=== PATIENT | female | born 1930 | race Caucasian/White ===

== ENCOUNTER 2017-05-04 10:16 | Outpatient (CLI) | payer MEDICARE, OTHER ==
--- NOTE | 2017-05-05 15:31 | DEXA Report ---
DEXA: 05/04/2017 CLINICAL INDICATION: Postmenopausal. TECHNIQUE: Dual energy x-ray absorptiometry (DXA) was performed on a [employer] system. Regions measured are the AP spine, femoral neck, and, if needed, forearm. COMPARISON: None. In accordance with the International Society for Clinical Densitometry (ISCD) guidelines, data from previous exams may be reanalyzed using current recommendations and techniques. This is done to allow a more accurate basis for comparison with the current study. FINDINGS Data for the lumbar spine is as follows: REGION BMD (g/cm/cm) T-SCORE Z-SCORE L1 0.929 -1.7 0.2 L2 0.982 -1.8 0.0 L3 1.343 1.2 3.1 L4 1.368 1.4 3.3 TOTAL 1.179 0.0 1.9 NOTE: All evaluable vertebrae are used for classification. Data for the hip is as follows: REGION BMD (g/cm/cm) T-SCORE Z-SCORE Neck 0.624 -3.0 -0.5 TOTAL 0.627 -3.0 -0.7 NOTE: The femoral neck or total proximal femur, whichever is lowest, is used for classification. IMPRESSION: THE WHO CLASSIFICATION BASED ON THE INTERNATIONAL REFERENCE STANDARD IS OSTEOPOROSIS. FRACTURE RISK IS HIGH. RECOMMENDATION: Patients with diagnosis of osteoporosis or osteopenia should have regular bone mineral density assessment. For those eligible for Medicare, routine testing is allowed once every 2 years. Testing frequency can be increased for patients who have rapidly progressing disease or for those who are receiving medical therapy to restore bone mass. COMMENT: World Health Organization (WHO) definitions for osteoporosis and osteopenia: NORMAL BMD: T-score at -1.0 or higher, fracture risk is low. OSTEOPENIA BMD: T-score between -1.0 and -2.5, fracture risk is increased. OSTEOPOROSIS BMD: T-score at -2.5 or lower, fracture risk high. National Osteoporosis Foundation recommends: 1. Obtain adequate dietary calcium (at least 1200 mg per day) and vitamin D (400 -800 international units per day). 2. Participate, as appropriate, in regular weightbearing and muscle- strengthening exercise. 3. Avoid tobacco use and reduce alcohol and caffeine intake. 4. For more detailed information see the website at www.NOF.org. MTDD
== END 2017-05-04 10:17 | disposition home or self-care (01) ==
LOC: DI 10:16
PROVIDERS: ATTEND Registered Nurse
DX: Z13.820 Encounter for screening for osteoporosis (principal); M81.0 Age-related osteoporosis without current pathological fracture; Z78.0 Asymptomatic menopausal state
CPT/HCPCS: 77080

== ENCOUNTER 2017-09-11 10:42 | Emergency (ER) | payer MEDICARE, OTHER ==
--- NOTE | 2017-09-11 11:07 | ED Physician Documentation ---
PD HPI BACK INJURY - Stated complaint Stated Complaint: GLF/BACK PX - History obtained from History obtained from: Patient - History of Present Illness Location: Lower (tailbone and pelvic area) Type of injury: Fall (slipped on ice and landed onto her buttocks, with pain in lower back/tailbone area.) Timing - onset: Last night Timing - duration: Days (1) Timing - details: Abrupt onset, Still present (hurting with walking around. Has walker at home.) Associated symptoms: No: Fever, Weakness, Numbness, Incontinent of urine Contributing factors: No: Work related Similar symptoms before: Has not had sx before Recently seen: Not recently seen Review of Systems Constitutional: denies: Fever, Chills Nose: denies: Rhinorrhea / runny nose, Congestion Throat: denies: Sore throat Respiratory: denies: Cough Skin: denies: Abrasion (s), Laceration (s) Neurologic: denies: Focal weakness, Numbness, Confused, Altered mental status, Headache, Head injury PD PAST MEDICAL HISTORY - Past Medical History Past Medical History: Yes Cardiovascular: Hypertension, High cholesterol Respiratory: Pneumonia Endocrine/Autoimmune: None GI: None : Retention, Nocturia HEENT: Macular degeneration, Chronic hearing loss Psych: None Musculoskeletal: Osteoarthritis, Chronic back pain Derm: Other - Past Surgical History Past Surgical History: Yes General: Appendectomy Ortho: Hip replacement /[employer]LYST: Mastectomy HEENT: Tonsil/Adenoidectomy - Present Medications Home Medications: Ambulatory Orders Medication Instructions Recorded Confirmed Chlorthalidone 25 mg PO DAILY 03/11/13 06/08/15 Losartan Potassium [Cozaar] 50 mg PO DAILY 03/11/13 06/08/15 Metoprolol Succinate 25 mg PO QPM 04/03/14 06/08/15 Aspirin 325 mg PO DAILY 09/11/17 Tramadol HCl 50 mg PO Q6H PRN #25 tablet 09/11/17 - Allergies Allergies/Adverse Reactions: Allergies Allergy/AdvReac Type Severity Reaction Status Date / Time No Known Drug Allergies Allergy Unverified 09/11/17 11:29 - Social History Does the pt smoke?: No Smoking Status: Never smoker Does the pt drink ETOH?: Yes Does the pt have substance abuse?: No - Immunizations Immunizations are current?: Yes PD ED PE NORMAL - Vitals Vital signs reviewed: Yes - General General: Alert and oriented X 3, No acute distress, Well developed/nourished - HEENT HEENT: Atraumatic - Neck Neck: Supple, no meningeal sign, No adenopathy - Cardiac Cardiac: RRR, No murmur - Respiratory Respiratory: Clear bilaterally - Abdomen Abdomen: Soft, Non tender - Back Back: Other (lumbar not tender. Having some tenderness sacral area and hurts with palpation of the pelvis. Hips good ROM and no pain with impaction. ) - Derm Derm: Normal color, Warm and dry Results - Vitals Vitals: Oxygen O2 Source Room air - Rads (name of study) pelvic CT Radiology: Prelim report reviewed (sacral avulsion fracture anteriorly S2-3 junction. ) PD MEDICAL DECISION MAKING - ED course Complexity details: considered differential, d/w patient, d/w family (spouse) Departure - Departure Disposition: 01 Home, Self Care Clinical Impression: Fall from slipping on ice Qualifiers: Encounter type: initial encounter Qualified Code(s): W00.9XXA - Unspecified fall due to ice and snow, initial encounter Sacral fracture, closed Qualifiers: Encounter type: initial encounter Zone of sacrum fracture: unspecified portion of sacrum Qualified Code(s): S32.10XA - Unspecified fracture of sacrum, initial encounter for closed fracture Condition: Stable Record reviewed to determine appropriate education?: Yes Instructions: ED Fx Pelvis Follow-Up: Heidi Gar ARNP [Primary Care Provider] - Prescriptions: Tramadol HCl 50 mg PO Q6H PRN #25 tablet PRN Reason: Pain Comments: Bearing and activity is okay but will hurt. Use ibuprofen 400 mg 3 times a day and add Tylenol 650 mg 4 times a day if needed. Add tramadol to that if needed for pain. Use a stool softener such as docusate daily. Drink lots of fluids. Follow-up with your primary care in about a week. Discharge Date/Time: 09/11/17 13:32
[2017-09-11] MEDS ORDERED: ACETAMINOPHEN 325 MG TABLET PO STA (11:27)
--- NOTE | 2017-09-11 12:50 | CT Report ---
EXAM: CT BONY PELVIS WITHOUT CONTRAST EXAM DATE: 09/11/2017 12:06 PM. CLINICAL HISTORY: Fell onto buttock 2 days ago; pain in sacral/coccyx. COMPARISON: Hip films from 07/31/2015. TECHNIQUE: Thin-section axial images were acquired of the pelvis without contrast. Post-processing: C oronal and sagittal reformats. Other: None. In accordance with CT protocol optimization, one or more of the following dose reduction techniques w ere utilized for this exam: automated exposure control, adjustment of mA and/or KV based on patient s ize, or use of iterative reconstructive technique. FINDINGS: Bones: There is a small fracture of the sacrum along the anterior aspect of the S2-S3 level. This is best seen on the sagittal plane on images 177 through 205. This can also be seen on the axial images of series 3, images 127 through 134. It appears that there is slight posterior displacement of the S2 level with respect to the S3 level. There are degenerative changes within the visualized lumbosacral spine, particularly at L5-S1. There is grade 1 anterolisthesis of L4 on L5 measuring 9 mm. Sacroiliac Joints: No widening, erosions, or sclerosis. Symphysis Pubis: Unremarkable. Right Hip: Total hip replacement. Hardware appears intact. Left Hip: The joint space is preserved. No calcified loose bodies. Musculature: Normal. No fatty atrophy. Pelvic Cavity: The visualized bowel, bladder, and reproductive organs are unremarkable on this noncon trast exam. Other: There is calcific atherosclerotic disease of the aorta and its branches. Coarse calcifications are noted within the right side of the pelvis, probably calcified lymph nodes. No lymphadenopathy. V isualized soft tissues within the pelvis are unremarkable. IMPRESSION: 1. Small fracture of the anterior aspect of the sacrum along the S2-S3 level. Slight posterior displa cement of the S2 level with respect to the S3 level as well. 2. Degenerative changes within the visualized lumbosacral spine. Grade 1 anterolisthesis of L4 and L5 . 3. Total hip replacement on the right. [facility] Referring Provider Line: [phone] SITE ID: [id number]
[2017-09-11] MEDS ORDERED: traMADol 50 MG TABLET PO STA (13:05)
[2017-09-11 13:18] VITALS: BP 159/73
== END 2017-09-11 13:32 | disposition home or self-care (01) ==
LOC: ED 10:42
DX: S32.10XA Unspecified fracture of sacrum, initial encounter for closed fracture (principal); W00.0XXA Fall on same level due to ice and snow, initial encounter; I10 Essential (primary) hypertension; E78.00 Pure hypercholesterolemia, unspecified; Z96.649 Presence of unspecified artificial hip joint; Z90.10 Acquired absence of unspecified breast and nipple
CPT/HCPCS: 72192; 99283; A9270

== ENCOUNTER 2017-09-13 06:34 | Outpatient (CLI) | payer MEDICARE, OTHER | END 2017-09-13 06:35 | disposition EMS.NT | LOC: EMS 06:34 | PROVIDERS: ATTEND Surgery | DX: M53.3 Sacrococcygeal disorders, not elsewhere classified (principal) ==

== ENCOUNTER 2017-09-13 08:03 | Emergency (ER) | payer MEDICARE, OTHER ==
[2017-09-13] MEDS ORDERED: HYDROcod/ACETAM 5/325 MG TABLET PO STA (09:40)
--- NOTE | 2017-09-13 09:40 | ED Physician Documentation ---
History of Present Illness - Stated complaint Stated Complaint: LOW BACK PX/2ND TO FALL - Chief complaint Chief Complaint: Back Pain - History obtained from History obtained from: Patient, Family (son) - Additonal information Additional information: 87-year-old female slipped on the ice on her walker fell onto her buttocks and has had a sacral fracture. She is having inadequate pain relief with the use of the tramadol. She has also developed some urinary incontinence that she has had previously with infection. Review of Systems Constitutional: denies: Fever Eyes: denies: Decreased vision Ears: denies: Ear pain Nose: denies: Congestion Throat: denies: Sore throat GI: denies: Vomiting : reports: Dysuria, Frequency, Incontinent Skin: denies: Rash Musculoskeletal: reports: Back pain. denies: Neck pain Neurologic: denies: Generalized weakness, Focal weakness PD PAST MEDICAL HISTORY - Past Medical History Past Medical History: Yes Cardiovascular: Hypertension, High cholesterol Respiratory: Pneumonia Endocrine/Autoimmune: None GI: None : Retention, Nocturia HEENT: Macular degeneration, Chronic hearing loss Psych: None Musculoskeletal: Osteoarthritis, Chronic back pain Derm: Other - Past Surgical History Past Surgical History: Yes General: Appendectomy Ortho: Hip replacement /[employer]: Mastectomy HEENT: Tonsil/Adenoidectomy - Present Medications Home Medications: Ambulatory Orders Medication Instructions Recorded Confirmed Chlorthalidone 25 mg PO DAILY 03/11/13 06/08/15 Losartan Potassium [Cozaar] 50 mg PO DAILY 03/11/13 06/08/15 Metoprolol Succinate 25 mg PO QPM 04/03/14 06/08/15 Aspirin 325 mg PO DAILY 09/11/17 HYDROcod/ACETAM 5/325 [Re[place]beck 5/325] 1 - 2 ea PO Q6H PRN #15 tablet 09/13/17 Sulfamethoxazole/Trimethoprim 1 each PO BID #14 tablet 09/13/17 [Sulfamethoxazole-Tmp Ds Tablet] - Allergies Allergies/Adverse Reactions: Allergies Allergy/AdvReac Type Severity Reaction Status Date / Time No Known Drug Allergies Allergy Unverified 09/11/17 11:29 - Social History Does the pt smoke?: No Smoking Status: Never smoker Does the pt drink ETOH?: Yes Does the pt have substance abuse?: No - Immunizations Immunizations are current?: Yes - POLST Patient has POLST: Yes PD ED PE NORMAL - Vitals Vital signs reviewed: Yes (tachy and hypertensive ) - General General: Alert and oriented X 3, No acute distress, Well developed/nourished - HEENT HEENT: Atraumatic, PERRL - Respiratory Respiratory: No respiratory distress - Back Back: No CVA TTP, Other (There is point tenderness to the lower back over the scarum ) - Derm Derm: Normal color, Warm and dry, No rash - Extremities Extremities: No deformity, No edema - Neuro Neuro: No motor deficit, No sensory deficit Eye Opening: Spontaneous Motor: Obeys Commands Verbal: Oriented GCS Score: 15 - Psych Psych: Normal mood, Normal affect Results - Vitals Vitals: Vital Signs - 24 hr 09/13/17 08:21 Temperature 37.0 C Heart Rate 101 H Respiratory 16 Rate Blood Pressure 185/102 H O2 Saturation 90 L Oxygen O2 Source Room air - Labs Labs: Laboratory Tests 09/13/17 09:40 Urine Color YELLOW Urine Clarity CLEAR Urine pH 6.5 Ur Specific Kiel 1.015 Urine Protein NEGATIVE Urine Glucose (UA) NEGATIVE Urine Ketones TRACE Urine Occult Blood NEGATIVE Urine Nitrite POSITIVE H Urine Bilirubin NEGATIVE Urine Urobilinogen 0.2 (NORMAL) Ur Leukocyte Esterase NEGATIVE Urine RBC 0-5 Urine WBC 6-10 H Ur Squamous Epith Cells MOD Squamous H Urine Bacteria Moderate H Ur Microscopic Review INDICATED Urine Culture Comments NOT INDICATED PD MEDICAL DECISION MAKING - ED course Complexity details: reviewed old records, reviewed results, re-evaluated patient , considered differential, d/w patient, d/w family ED course: 87-year-old female with a recent fall has inadequate pain relief with the use of tramadol she is administered Vicodin orally here in the emergency department with some improvement in her pain she also has an increase in her incontinence and has urinary tract infection on evaluation of her urine. We will place her on some Septra and increase fluids and prescribed the pain medication. Departure - Departure Disposition: 01 Home, Self Care Clinical Impression: UTI (lower urinary tract infection) Sacral fracture, closed Qualifiers: Encounter type: initial encounter Zone of sacrum fracture: unspecified portion of sacrum Qualified Code(s): S32.10XA - Unspecified fracture of sacrum, initial encounter for closed fracture Instructions: ED Fx Coccyx, ED UTI Cystitis Female Follow-Up: Heidi Gar, [employer] [Primary Care Provider] - Prescriptions: HYDROcod/ACETAM 5/325 [Re[place]beck 5/325] 1 - 2 ea PO Q6H PRN #15 tablet PRN Reason: Pain Sulfamethoxazole/Trimethoprim [Sulfamethoxazole-Tmp Ds Tablet] 1 each PO BID # 14 tablet
[2017-09-13 09:54] LABS: BILIRUBIN,URINE NEGATIVE (NEGATIVE); GLUCOSE, URINE (UA) NEGATIVE (NEGATIVE); KETONES,URINE (UA) TRACE mg/dL (NEGATIVE); LEUKOCYTE ESTERASE, URINE NEGATIVE (NEGATIVE); NITRITE,URINE POSITIVE (NEGATIVE); OCCULT BLOOD,URINE NEGATIVE (NEGATIVE); PH,URINE 6.5 PH (5.0-7.5); PROTEIN,URINE NEGATIVE (NEGATIVE); UROBILINOGEN,URINE 0.2 (NORMAL) E.U./dL (NORMAL)
[2017-09-13 09:55] LABS: CLARITY,URINE CLEAR (CLEAR)
[2017-09-13 10:03] LABS: BACTERIA,URINE Moderate /HPF (None Seen); RBC,URINE 0-5 /HPF (0-5); SQUAMOUS EPITHELIAL CELL,UR MOD Squamous (<= Few)
[2017-09-13 11:38] VITALS: BP 167/76
== END 2017-09-13 12:10 | disposition home or self-care (01) ==
LOC: ED 08:03
DX: N39.0 Urinary tract infection, site not specified (principal); S32.10XA Unspecified fracture of sacrum, initial encounter for closed fracture; W00.0XXA Fall on same level due to ice and snow, initial encounter; I10 Essential (primary) hypertension; E78.00 Pure hypercholesterolemia, unspecified; Z96.649 Presence of unspecified artificial hip joint; Z90.10 Acquired absence of unspecified breast and nipple
CPT/HCPCS: 81001; 99283; A9270; 81003; 87086

== ENCOUNTER 2017-09-27 23:39 | Outpatient (CLI) | payer MEDICARE, OTHER | END 2017-09-27 23:59 | disposition E | LOC: EMS 23:39 | PROVIDERS: ATTEND Surgery ==